=== PATIENT | female | born 1995 | race Caucasian/White ===

== ENCOUNTER 2022-01-01 23:50 | Emergency (ER) | payer OTHER ==
[~2022-01-01] VITALS: Ht 152.4 cm; Wt 61.2 kg
[2022-01-01 23:57] VITALS: BP 137/90
--- NOTE | 2022-01-02 | NUR ---
SWABS FOR MARC, INFLUENZA SENT TO LAB
--- NOTE | 2022-01-02 00:02 | NUR ---
TO LOBBY A/W BED AMBULATORY
--- NOTE | 2022-01-02 02:30 | NUR ---
PT TO BED 6
[2022-01-02] MEDS ORDERED: ONDANSETRON 4 MG ODT PO ONE (03:25)
[2022-01-02] MEDS ORDERED: KETOROLAC 60 MG/2 ML VIAL IM ONE (03:25)
[2022-01-02] MEDS ORDERED: PSEU120T22 PO (03:33)
[2022-01-02] MEDS ORDERED: IBUP-2213 PO (03:33)
[2022-01-02] MEDS ORDERED: PRED20TA5 PO (03:33)
[2022-01-02] MEDS ORDERED: ONDA8TAB87 PO (03:33)
[2022-01-02 04:01] VITALS: BP 137/90
--- NOTE | 2022-01-02 04:01 | NUR ---
Patient discharged with v/s stable. Written and verbal after care instructions given and explained. Patient verbalized understanding. Ambulatory with steady gait. All questions addressed prior to discharge. Advised to follow up with PMD.
== END 2022-01-02 04:01 | disposition home or self-care (01) ==
LOC: MED 23:50
DX: J06.9 Acute upper respiratory infection, unspecified (principal); H92.01 Otalgia, right ear
CPT/HCPCS: 81025; 96372; 99283; J1885; Q0162